=== PATIENT | male | born 1950 | race Caucasian/White ===

== ENCOUNTER 2017-11-16 09:14 | Day surgery (SDC) | payer OTHER ==
[~2017-11-16] VITALS: Ht 190.5 cm; Wt 99.8 kg
[~2017-11-16 09:14] MED LIST: CHOL20009 PO; FLUO-125 PO; MULTCAP45 PO; TRIA75TA55 PO
[2017-11-16] MEDS ORDERED: IOHEXOL 350 MG/ML 100ML IJ ONE (09:25)
[2017-11-16] MEDS ORDERED: LIDOCAINE 2%HCL (LOCAL ANESTH.) INJ 20ML MDV ONE (09:25)
[2017-11-16] MEDS ORDERED: fentaNYL CITRATE 100 MCG/2 ML VL ONE (10:15)
[2017-11-16] MEDS ORDERED: ANGIOMAX 250 MG VIAL IV ONE (10:15)
[2017-11-16] MEDS ORDERED: SODIUM CHL 0.9% 0 ML ONE (10:15)
[2017-11-16] MEDS ORDERED: MIDAZOLAM HCL 1MG/1ML-2 ML VIAL ONE (10:15)
[2017-11-16] MEDS ORDERED: HYDROmorphone HCL 2 MG/ML VL ONE (11:34)
== END 2017-11-16 13:45 | disposition home or self-care (01) ==
LOC: CATH 09:14
PROVIDERS: ATTEND Internal Medicine Cardiovascular Disease
DX: I35.0 Nonrheumatic aortic (valve) stenosis (principal); I10 Essential (primary) hypertension; F32.9 Major depressive disorder, single episode, unspecified; I34.0 Nonrheumatic mitral (valve) insufficiency; F10.99 Alcohol use, unspecified with unspecified alcohol-induced disorder
CPT/HCPCS: 93005; 93454; C1760; C1894; J1170; J1644; J2250; J3010; J7030; Q9967; 93452; 99152; 99153